=== PATIENT | female | born 1995 | race Caucasian/White ===

== ENCOUNTER 2022-08-13 15:02 | Outpatient (CLI) | payer OTHER, BC ==
[~2022-08-13] VITALS: Ht 177.8 cm; Wt 135.2 kg
[~2022-08-13 15:02] MED LIST: PRENATAL VITAM1 EAC4 PO; TRANDATE200 MG PO
[2022-08-13 21:13] LABS: HEMOGLOBIN 12.5 gm/dl (12.3-15.3); RED BLOOD COUNT 4.26 M/UL (4.00-5.10)
== END 2022-08-14 14:00 | disposition home or self-care (01) ==
LOC: GENOP 15:02
PROVIDERS: Obstetrics & Gynecology
DX: O99.891 Other specified diseases and conditions complicating pregnancy (principal); M54.9 Dorsalgia, unspecified; R10.9 Unspecified abdominal pain; Z3A.33 33 weeks gestation of pregnancy
CPT/HCPCS: 81001; 82247; 82248; 82565; 82570; 82962; 84156; 84450; 84460; 85025; 85379; 85384; 85610; 85730; 87086; 96360; 96372; 96374; J0696; J0702